=== PATIENT | female | born 2000 | race Two or more races ===

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

== ENCOUNTER 2018-04-25 17:57 | Emergency (ER) | payer MEDICAID ==
[~2018-04-25] VITALS: Ht 170.2 cm; Wt 82.9 kg
[~2018-04-25 17:57] MED LIST: ALBU0.63 INH; IBUP-1222 PO; PREN1TAB60 PO
[2018-04-25 18:03] VITALS: BP 114/77
== END 2018-04-25 19:56 | disposition home or self-care (01) ==
LOC: ED 19:45
DX: S16.1XXA Strain of muscle, fascia and tendon at neck level, initial encounter (principal); S39.012A Strain of muscle, fascia and tendon of lower back, initial encounter; G89.11 Acute pain due to trauma; J45.909 Unspecified asthma, uncomplicated; V49.49XA Driver injured in collision with other motor vehicles in traffic accident, initial encounter; Y93.89 Activity, other specified; Y92.89 Other specified places as the place of occurrence of the external cause; Y99.8 Other external cause status
CPT/HCPCS: 72110; 72125; 99284

== ENCOUNTER 2021-06-21 09:53 | Day surgery (SDC) | payer MEDICAID ==
[~2021-06-21] VITALS: Ht 170.2 cm; Wt 93.6 kg
[2021-06-21 11:04] VITALS: BP 114/77
== END 2021-06-21 13:55 | disposition home or self-care (01) ==
LOC: OR 09:53
PROVIDERS: ATTEND Obstetrics & Gynecology
DX: O02.1 Missed abortion (principal); J45.909 Unspecified asthma, uncomplicated; Z20.822 Contact with and (suspected) exposure to COVID-19; Z79.899 Other long term (current) drug therapy; Z91.041 Radiographic dye allergy status; Z91.011 Allergy to milk products; Z91.018 Allergy to other foods
CPT/HCPCS: 36415; 59820; 80053; 81001; 84702; 85025; 86850; 86900; 87086; 87635; 88305; J0690; J2175; J2250; J2405; J2590; J2704; J3010; J7120